=== PATIENT | female | born 1985 | race African-American/Black ===

== ENCOUNTER 2023-01-03 05:43 | Emergency (ER) | payer MEDICAID, OTHER ==
[~2023-01-03] VITALS: Ht 170.2 cm; Wt 104.0 kg
[~2023-01-03 05:43] MED LIST: HYDR-523 PO
[2023-01-03 06:06] VITALS: BP 105/67; PULSE 91; RESP 14; TEMP 98; O2SAT 97
== END 2023-01-03 07:48 | disposition left against medical advice (07) ==
LOC: ER 05:43
DX: M25.562 Pain in left knee (principal); Z53.21 Procedure and treatment not carried out due to patient leaving prior to being seen by health care provider
CPT/HCPCS: 99281